=== PATIENT | female | born 1970 ===

== ENCOUNTER 2021-01-10 12:30 | Inpatient (IN) | payer MEDICAID ==
[2021-01-11 05:54] LABS: Basophils % (Auto) 0.5 % (0.0-1.8); Eosinophils # (Auto) 0.1 K/mm3 (0.0-0.4); Eosinophils % (Auto) 1.7 % (0.0-4.3); Hematocrit 31.5 % (30.3-42.9); Hemoglobin 10.3 gm/dl (10.1-14.3); Lymphocytes # (Auto) 1.4 K/mm3 (1.2-5.4); Mean Corpuscular HGB Conc 33 % (30-34); Mean Corpuscular Volume 76 fl (79-97); Monocytes # (Auto) 0.6 K/mm3 (0.0-0.8); Monocytes % (Auto) 8.8 % (0.0-7.3); Platelet Count 195 K/mm3 (140-440); Red Blood Count 4.13 M/mm3 (3.65-5.03); Red Cell Distribution Width 17.1 % (13.2-15.2)
[2021-01-11 06:16] LABS: Albumin 3.1 g/dL (3.9-5); Calcium 8.8 mg/dL (8.4-10.2); Chol/HDL Ratio 2.4 %
[2021-01-11 07:40] LABS: Hepatitis C Virus Antibody Non-Reactive (NonReactive)
[2021-01-11 08:12] LABS: Hepatitis B Surface Antigen Nonreactive (Negative)
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
[2021-01-11] MEDS ORDERED: DOCUSATE SODIUM 100 MG CAP PO PRN (10:00)
[2021-01-11] MEDS ORDERED: NON-FORMULARY EACH (Levetiracetam [Keppra Tab] 750 MG Tablet) PO SCH (10:00)
[2021-01-11] MEDS ORDERED: NON-FORMULARY EACH (Paroxetine Hcl [Paxil] 30 MG Tablet) PO SCH (10:00)
[2021-01-11] MEDS ORDERED: INSULIN REGULAR, HUMAN 100 UNITS/1 ML SUB-Q SCH (11:30)
[2021-01-11] MEDS: ASPIRIN EC 81 MG TAB PO SCH (12:27)
[2021-01-11] MEDS: hydrOXYzine PAMOATE 25 MG CAP PO SCH ×2 (12:28→21:41)
[2021-01-11] MEDS: PARoxetine 10 MG TAB PO SCH (12:29)
[2021-01-11] MEDS: BENZTROPINE 1 MG TAB PO SCH ×2 (12:29→21:40)
[2021-01-11] MEDS: levETIRAcetam 500 MG TAB PO SCH ×2 (12:30→21:40)
[2021-01-11] MEDS: PARoxetine 20 MG TAB PO SCH (12:34)
[2021-01-11] MEDS: INSULIN GLARGINE 100 UNITS/ML SUB-Q SCH ×2 (21:04→21:42)
[2021-01-11] MEDS: PRAVASTATIN 80 MG TAB PO SCH (21:41)
[2021-01-12] MEDS: INSULIN REGULAR, HUMAN 100 UNITS/1 ML SUB-Q SCH ×4 (08:48→21:30)
[2021-01-12] MEDS: hydrOXYzine PAMOATE 25 MG CAP PO SCH ×2 (10:38→21:25)
[2021-01-12] MEDS: ASPIRIN EC 81 MG TAB PO SCH (10:38)
[2021-01-12] MEDS: PARoxetine 20 MG TAB PO SCH (10:38)
[2021-01-12] MEDS: PARoxetine 10 MG TAB PO SCH (10:38)
[2021-01-12] MEDS: BENZTROPINE 1 MG TAB PO SCH ×2 (10:38→21:26)
[2021-01-12] MEDS: levETIRAcetam 500 MG TAB PO SCH ×2 (10:38→21:26)
--- NOTE | 2021-01-12 11:16 | History and Physical Report ---
History of Present Illness Date of examination: 01/12/21 Date of admission: 01/10/21 16:45 Chief complaint: Medical consult History of present illness: 50-year-old female patient with history of diabetes mellitus, seizure disorder, dyslipidemia and hypertension as well as bipolar and schizoaffective disorder was admitted to [facility] for further evaluation and management Since patient has multiple medical problems, medical consult was requested from the hospitalist service. Have seen and examined the patient in [facility] unit patient was calm and composed composed, denies any chest pain or shortness of breath Denies headache dizziness weakness or numbness, denies nausea vomiting or abdominal pain patient says she feels better here Denies suicidal thoughts or ideation No other complaints Past History Past Medical History: diabetes, hypertension, hyperlipidemia, seizures, other (Bipolar, schizoaffective disorder) Past Surgical History: No surgical history Social history: denies: smoking, alcohol abuse, prescription drug abuse Family history: denies: no significant family history Medications and Allergies Allergies Allergy/AdvReac Type Severity Reaction Status Date / Time dextromethorphan Allergy Unknown Unverified 01/10/21 15:08 guaifenesin [From Robitussin] Allergy Unknown Unverified 01/10/21 15:08 lisinopril Allergy Unknown Unverified 01/10/21 15:08 Penicillins Allergy Unknown Unverified 01/10/21 15:08 Home Medications Medication Instructions Recorded Confirmed Last Taken Type Aspirin EC [Halfprin EC] 81 mg PO QDAY 01/10/21 01/10/21 Unknown History Benztropine [Cogentin] 1 mg PO BID 01/10/21 01/10/21 Unknown History Docusate Sodium [Colace] 100 mg PO DAILY PRN 01/10/21 01/10/21 Unknown History PARoxetine HCl [Paxil] 30 mg PO DAILY 01/10/21 01/10/21 Unknown History Pravastatin [Pravachol] 80 mg PO QHS 01/10/21 01/10/21 Unknown History hydrOXYzine PAMOATE [Vistaril] 25 mg PO BID 01/10/21 01/10/21 Unknown History levETIRAcetam [Keppra TAB] 750 mg PO BID 01/10/21 01/10/21 Unknown History Insulin Glargine [Lantus VIAL] 25 unit SUB-Q BID 01/11/21 01/11/21 Unknown History Insulin Regular, Human [HumuLIN R] See Protocol SUB-Q ACHS 01/11/21 01/11/21 Unknown History Active Meds: Active Medications Aspirin (Aspirin Ec 81 Mg Tab) 81 mg PO QDAY [facility] Last Admin: 01/12/21 10:38 Dose: 81 mg Documented by: Benztropine Mesylate (Benztropine 1 Mg Tab) 1 mg PO BID [facility] Last Admin: 01/12/21 10:38 Dose: 1 mg Documented by: Docusate Sodium (Docusate Sodium 100 Mg Cap) 100 mg PO DAILY PRN PRN Reason: constipation Last Admin: 01/11/21 12:28 Dose: 100 mg Documented by: Hydroxyzine Pamoate (Hydroxyzine Pamoate 25 Mg Cap) 25 mg PO BID [facility] Last Admin: 01/12/21 10:38 Dose: 25 mg Documented by: Insulin Glargine (Insulin Glargine 100 Units/Ml) 25 units SUB-Q BID [facility] Last Admin: 01/11/21 21:42 Dose: Not Given Documented by: Insulin Human Regular (Insulin Regular, Human 100 Units/1 Ml) 0 units SUB-Q [facility]; Protocol Last Admin: 01/12/21 08:48 Dose: Not Given Documented by: Levetiracetam (Levetiracetam 500 Mg Tab) 750 mg PO BID [facility] Last Admin: 01/12/21 10:38 Dose: 750 mg Documented by: Paroxetine HCl (Paroxetine 20 Mg Tab) 20 mg PO DAILY [facility] Last Admin: 01/12/21 10:38 Dose: 20 mg Documented by: Paroxetine HCl (Paroxetine 10 Mg Tab) 10 mg PO DAILY [facility] Last Admin: 01/12/21 10:38 Dose: 10 mg Documented by: Pravastatin Sodium (Pravastatin 80 Mg Tab) 80 mg PO QHS [facility] Last Admin: 01/11/21 21:41 Dose: 80 mg Documented by: Review of Systems Constitutional: weakness, no weight loss, no weight gain Ears, nose, mouth and throat: no nasal congestion, no nasal discharge Cardiovascular: no chest pain, no palpitations Respiratory: no cough, no shortness of breath Gastrointestinal: no abdominal pain, no nausea, no vomiting Genitourinary Female: no flank pain, no dysuria Musculoskeletal: no myalgias, no arthritis Integumentary: no rash, no lesions Neurological: seizures (History of), no syncope Psychiatric: other (Bipolar, psychosis) Endocrine: no cold intolerance, no heat intolerance Hematologic/Lymphatic: no easy bruising, no easy bleeding Allergic/Immunologic: no urticaria, no allergic rhinitis Exam - Constitutional Vitals: Temp Pulse Resp BP Pulse Ox 98.7 F 61 18 190/68 98 01/12/21 09:18 01/12/21 09:18 01/12/21 09:18 01/12/21 09:18 01/12/21 09:18 General appearance: Present: no acute distress, well-nourished - EENT Eyes: Present: PERRL, EOM intact - Neck Neck: Present: supple, normal ROM - Respiratory Respiratory effort: normal Respiratory: bilateral: diminished, negative: rales, rhonchi, wheezing - Cardiovascular Rhythm: regular Heart Sounds: Present: S1 & S2 - Extremities Extremities: no ischemia, No edema - Abdominal General gastrointestinal: Present: soft, non-tender, non-distended, normal bowel sounds - Integumentary Integumentary: Present: clear, warm - Musculoskeletal Musculoskeletal: strength equal bilaterally, generalized weakness - Psychiatric Psychiatric: appropriate mood/affect, cooperative, no agitated - Neurologic Neurologic: moves all extremities Results - Labs CBC & Chem 7: 01/11/21 05:30 01/11/21 05:30 Labs: Abnormal lab results 01/11/21 01/11/21 01/12/21 Range/Units 14:26 21:11 06:14 POC Glucose 118 H 159 H 160 H (70-105) mg/dL Assessment and Plan --Hypertension; uncontrolled Add hydralazine 25 mg 3 times a day, and as needed hydralazine every 4 hours for blood pressure more than 155/90 -Type 2 diabetes mellitus-; Accu-Chek, sliding scale coverage, ADA diet, long-acting insulin as needed --Dyslipidemia; continue lipid-lowering medications Low-cholesterol diet --History of seizures; Seizure precautions, continue Keppra Patient cannot drive until cleared by neurologist --DVT prophylaxis; SCDs while resting Increase ambulation as tolerated and as permitted from the psych unit --Full CODE STATUS Closely monitor the patient and adjust management as needed Thank you for this consult we will follow the patient along with
[2021-01-12] MEDS: INSULIN GLARGINE 100 UNITS/ML SUB-Q SCH ×2 (11:59→21:30)
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
[2021-01-12] MEDS: QUEtiapine 25 MG TAB PO SCH ×2 (14:06→21:26)
[2021-01-12] MEDS: PRAVASTATIN 80 MG TAB PO SCH (21:25)
[2021-01-13] MEDS: INSULIN REGULAR, HUMAN 100 UNITS/1 ML SUB-Q SCH ×4 (08:19→21:46)
[2021-01-13] MEDS ORDERED: hydrALAZINE 10 MG TAB PO PRN (09:00)
--- NOTE | 2021-01-13 09:04 | Progress Note ---
Subjective Date of service: 01/13/21 Subjective Comment: 01/12/2021: The patient continue to be confused stating " it only takes one time to get ." She reports not doing well. She denies having suicidal/homicidal ideation and denies hallucinations. 01/13/2021: The patient continues to be confused and pacing. Per nurse: "pt is very disorganized, bizarre behaviour, irritable, pacing ,wet her self while sleeping, she went to shower with her cloth on. pt is medication compliant, good appetite, slept for 5hrs, presently asleep. no distress noted." REVIEW OF SYSTEMS Constitutional: Negative for weight loss ENT: Negative for stridor Respiratory: Negative for cough or hemoptysis All other systems reviewed and are negative MENTAL STATUS EXAMINATION General Appearance and Behavior: Age appropriate, good hygiene, wearing appropriate clothes, fair eye contact Cooperation: cooperative Psychomotor Behavior: Psychomotor normal Mood: Confused Affect and affective range: Incongruent to stated mood Thought Process: illogical Thought Content:confused Speech: normal tone and pace Suicidal Ideation:Denies Homicidal Ideation: Denies Hallucinations: Intermittent Auditory/ Visual Hallucinations Impulse Control: Questionable Insight and Judgment: Limited insight and judgment Memory: Normal Attention: Normal Orientation: Alert and oriented Assessment and Plan (1) Schizoaffective Current Visit: Yes Status: Acute Start Haldol 5mg po BID Treatment Plan Patient admitted for inpatient psychiatric evaluation, medication adjustment and close monitoring The patient's behavior, mood, sleep and appetite will be closely monitored. Patient enrolled in individual and group therapeutic sessions and encouraged to attend. Patient provided with a safe and structured environment. Patient's physical health needs will be addressed by the Hospitalist. Hospitalist Consulted Labs including CBC, CMP, Lipid profile and Hemoglobin A1C levels ordered for baseline reference Social Assessment will be completed and the [facility] Counselor will work with patient and family to ensure a suitable and safe disposition Medication adjustment will be made as clinically indicated Continued Home medications Start Seroquel 25mg po BID Usual Wellness [facility]/Preservation: - Start Trazodone 50 mg po QHS & 50 mg po QHS PRN between 10 PM & 2 AM for insomnia - Start Melatonin 5 mg po QHS to promote circadian rhythm The patient agreed on the treatment plan, understood the risk, benefit, alternative treatment, potential consequence of no treatment, and gave informed consent. Estimated days:2 Post hospital care: primary care provider, psychiatric provider Case staffed with Dr. Dawson Medications and Allergies Medications and Allergies Allergies Allergy/AdvReac Type Severity Reaction Status Date / Time dextromethorphan Allergy Unknown Unverified 01/10/21 15:08 guaifenesin [From Robitussin] Allergy Unknown Unverified 01/10/21 15:08 lisinopril Allergy Unknown Unverified 01/10/21 15:08 Penicillins Allergy Unknown Unverified 01/10/21 15:08 Home Medications Medication Instructions Recorded Confirmed Last Taken Type Aspirin EC [Halfprin EC] 81 mg PO QDAY 01/10/21 01/10/21 Unknown History Benztropine [Cogentin] 1 mg PO BID 01/10/21 01/10/21 Unknown History Docusate Sodium [Colace] 100 mg PO DAILY PRN 01/10/21 01/10/21 Unknown History PARoxetine HCl [Paxil] 30 mg PO DAILY 01/10/21 01/10/21 Unknown History Pravastatin [Pravachol] 80 mg PO QHS 01/10/21 01/10/21 Unknown History hydrOXYzine PAMOATE [Vistaril] 25 mg PO BID 01/10/21 01/10/21 Unknown History levETIRAcetam [Keppra TAB] 750 mg PO BID 01/10/21 01/10/21 Unknown History Insulin Glargine [Lantus VIAL] 25 unit SUB-Q BID 01/11/21 01/11/21 Unknown History Insulin Regular, Human [HumuLIN R] See Protocol SUB-Q ACHS 01/11/21 01/11/21 Unknown History Active Meds: Active Medications Aspirin (Aspirin Ec 81 Mg Tab) 81 mg PO QDAY [facility] Last Admin: 01/12/21 10:38 Dose: 81 mg Documented by: Benztropine Mesylate (Benztropine 1 Mg Tab) 1 mg PO BID [facility] Last Admin: 01/12/21 21:26 Dose: 1 mg Documented by: Docusate Sodium (Docusate Sodium 100 Mg Cap) 100 mg PO DAILY PRN PRN Reason: constipation Last Admin: 01/11/21 12:28 Dose: 100 mg Documented by: Hydralazine HCl (Hydralazine 25 Mg Tab) 25 mg PO Q8HR [facility] Hydralazine HCl (Hydralazine 10 Mg Tab) 10 mg PO Q4H PRN PRN Reason: Hypertension Hydroxyzine Pamoate (Hydroxyzine Pamoate 25 Mg Cap) 25 mg PO BID [facility] Last Admin: 01/12/21 21:25 Dose: 25 mg Documented by: Insulin Glargine (Insulin Glargine 100 Units/Ml) 25 units SUB-Q BID [facility] Last Admin: 01/12/21 21:30 Dose: Not Given Documented by: Insulin Human Regular (Insulin Regular, Human 100 Units/1 Ml) 0 units SUB-Q ACHS [facility]; Protocol Last Admin: 01/13/21 08:19 Dose: Not Given Documented by: Levetiracetam (Levetiracetam 500 Mg Tab) 750 mg PO BID [facility] Last Admin: 01/12/21 21:26 Dose: 750 mg Documented by: Paroxetine HCl (Paroxetine 20 Mg Tab) 20 mg PO DAILY [facility] Last Admin: 01/12/21 10:38 Dose: 20 mg Documented by: Paroxetine HCl (Paroxetine 10 Mg Tab) 10 mg PO DAILY [facility] Last Admin: 01/12/21 10:38 Dose: 10 mg Documented by: Pravastatin Sodium (Pravastatin 80 Mg Tab) 80 mg PO QHS [facility] Last Admin: 01/12/21 21:25 Dose: 80 mg Documented by: Quetiapine Fumarate (Quetiapine 25 Mg Tab) 25 mg PO BID [facility] Last Admin: 01/12/21 21:26 Dose: 25 mg Documented by: Results - Results Labs/Vitals: Laboratory Last Values WBC 6.5 K/mm3 (4.5-11.0) 01/11/21 05:30 RBC 4.13 M/mm3 (3.65-5.03) 01/11/21 05:30 Hgb 10.3 gm/dl (10.1-14.3) 01/11/21 05:30 Hct 31.5 % (30.3-42.9) 01/11/21 05:30 MCV 76 fl (79-97) L 01/11/21 05:30 MCH 25 pg (28-32) L 01/11/21 05:30 MCHC 33 % (30-34) 01/11/21 05:30 RDW 17.1 % (13.2-15.2) H 01/11/21 05:30 Plt Count 195 K/mm3 (140-440) 01/11/21 05:30 Lymph % (Auto) 21.0 % (13.4-35.0) 01/11/21 05:30 [place] % (Auto) 8.8 % (0.0-7.3) H 01/11/21 05:30 Eos % (Auto) 1.7 % (0.0-4.3) 01/11/21 05:30 Baso % (Auto) 0.5 % (0.0-1.8) 01/11/21 05:30 Lymph # (Auto) 1.4 K/mm3 (1.2-5.4) 01/11/21 05:30 [place] # (Auto) 0.6 K/mm3 (0.0-0.8) 01/11/21 05:30 Eos # (Auto) 0.1 K/mm3 (0.0-0.4) 01/11/21 05:30 Baso # (Auto) 0.0 K/mm3 (0.0-0.1) 01/11/21 05:30 Seg Neutrophils % 68.0 % (40.0-70.0) 01/11/21 05:30 Seg Neutrophils # 4.4 K/mm3 (1.8-7.7) 01/11/21 05:30 Sodium 139 mmol/L (137-145) 01/11/21 05:30 Potassium 3.6 mmol/L (3.6-5.0) 01/11/21 05:30 Chloride 103.4 mmol/L (98-107) 01/11/21 05:30 Carbon Dioxide 26 mmol/L (22-30) 01/11/21 05:30 Anion Gap 13 mmol/L 01/11/21 05:30 BUN 30 mg/dL (7-17) H 01/11/21 05:30 Creatinine 1.3 mg/dL (0.6-1.2) H 01/11/21 05:30 Estimated GFR 43 ml/min 01/11/21 05:30 BUN/Creatinine Ratio 23 % 01/11/21 05:30 Glucose 141 mg/dL (65-100) H 01/11/21 05:30 POC Glucose 124 mg/dL (70-105) H 01/13/21 06:27 Hemoglobin A1c 8.1 % (4-6) H 01/11/21 05:30 Calcium 8.8 mg/dL (8.4-10.2) 01/11/21 05:30 Total Bilirubin 0.20 mg/dL (0.1-1.2) 01/11/21 05:30 AST 8 units/L (5-40) 01/11/21 05:30 ALT 10 units/L (7-56) 01/11/21 05:30 Alkaline Phosphatase 87 units/L (35-129) 01/11/21 05:30 Total Protein 7.0 g/dL (6.3-8.2) 01/11/21 05:30 Albumin 3.1 g/dL (3.9-5) L 01/11/21 05:30 Albumin/Globulin Ratio 0.8 % 01/11/21 05:30 Triglycerides 75 mg/dL (2-149) 01/11/21 05:30 Cholesterol 173 mg/dL (50-199) 01/11/21 05:30 LDL Cholesterol Direct 94 mg/dL (50-130) 01/11/21 05:30 HDL Cholesterol 72 mg/dL (40-59) H 01/11/21 05:30 Cholesterol/HDL Ratio 2.40 % 01/11/21 05:30 TSH 0.693 mlU/mL (0.270-4.200) 01/11/21 05:30 Hepatitis A IgM Ab Non-reactive (NonReactive) 01/11/21 05:30 Hep Bs Antigen Nonreactive (Negative) 01/11/21 05:30 Hep B Core IgM Ab Non-reactive (NonReactive) 01/11/21 05:30 Hepatitis C Antibody Non-reactive (NonReactive) 01/11/21 05:30 Last Vital Signs Temp 98.5 F 01/12/21 19:56 Pulse 75 01/12/21 23:05 Resp 16 01/12/21 19:56 BP 188/61 01/12/21 23:05 Pulse Ox 98 01/12/21 19:56
[2021-01-13] MEDS: BENZTROPINE 1 MG TAB PO SCH ×2 (09:49→21:44)
[2021-01-13] MEDS: ASPIRIN EC 81 MG TAB PO SCH (09:49)
[2021-01-13] MEDS: hydrOXYzine PAMOATE 25 MG CAP PO SCH ×2 (09:49→21:44)
[2021-01-13] MEDS: HALOPERIDOL 5 MG TAB PO SCH ×2 (09:49→21:45)
[2021-01-13] MEDS: PARoxetine 10 MG TAB PO SCH (09:49)
[2021-01-13] MEDS: levETIRAcetam 500 MG TAB PO SCH ×2 (09:49→21:44)
[2021-01-13] MEDS: PARoxetine 20 MG TAB PO SCH (09:49)
[2021-01-13] MEDS: INSULIN GLARGINE 100 UNITS/ML SUB-Q SCH ×2 (09:50→21:46)
[2021-01-13] MEDS: hydrALAZINE 25 MG TAB PO SCH ×2 (14:32→21:45)
[2021-01-13] MEDS: PRAVASTATIN 80 MG TAB PO SCH (21:44)
[2021-01-14] MEDS: hydrALAZINE 25 MG TAB PO SCH ×3 (06:02→21:38)
[2021-01-14] MEDS: INSULIN REGULAR, HUMAN 100 UNITS/1 ML SUB-Q SCH ×4 (07:55→22:33)
--- NOTE | 2021-01-14 09:03 | Progress Note ---
Subjective Date of service: 01/14/21 Principal diagnosis: schizoaffective disorder Subjective Comment: The patient was seen today. She is a/o x 3. She says she feels wonderful. At times the patient is mumbling and appears to be talking to herself. I ask the patient and she says "I'm talking to you." She denies hallucinations. She denies SI/HI. She says her daughter is seven months and she's ready to go home and help her. REVIEW OF SYSTEMS Constitutional: Negative for weight loss ENT: Negative for stridor Respiratory: Negative for cough or hemoptysis All other systems reviewed and are negative MENTAL STATUS EXAMINATION General Appearance and Behavior: Age appropriate, good hygiene, wearing appropriate clothes, fair eye contact Cooperation: cooperative Psychomotor Behavior: Psychomotor normal Mood: Confused Affect and affective range: Incongruent to stated mood Thought Process: illogical Thought Content:confused Speech: normal tone and pace Suicidal Ideation:Denies Homicidal Ideation: Denies Hallucinations: Intermittent Auditory/ Visual Hallucinations Impulse Control: Questionable Insight and Judgment: Limited insight and judgment Memory: Normal Attention: Normal Orientation: Alert and oriented Assessment and Plan (1) Schizoaffective Current Visit: Yes Status: Acute Treatment Plan Patient admitted for inpatient psychiatric evaluation, medication adjustment and close monitoring The patient's behavior, mood, sleep and appetite will be closely monitored. Patient enrolled in individual and group therapeutic sessions and encouraged to attend. Patient provided with a safe and structured environment. Patient's physical health needs will be addressed by the Hospitalist. Hospitalist Consulted Labs including CBC, CMP, Lipid profile and Hemoglobin A1C levels ordered for baseline reference Social Assessment will be completed and the Box Machine Operator will work with patient and family to ensure a suitable and safe disposition Medication adjustment will be made as clinically indicated Continued Home medications Usual Wellness [facility]/Preservation: - Start Trazodone 50 mg po QHS & 50 mg po QHS PRN between 10 PM & 2 AM for insomnia - Start Melatonin 5 mg po QHS to promote circadian rhythm The patient agreed on the treatment plan, understood the risk, benefit, a lternative treatment, potential consequence of no treatment, and gave informed consent. Estimated days: 1 Post hospital care: primary care provider, psychiatric provider Case staffed with Dr. Dawson Medications and Allergies Allergies Allergy/AdvReac Type Severity Reaction Status Date / Time dextromethorphan Allergy Unknown Unverified 01/10/21 15:08 guaifenesin [From Robitussin] Allergy Unknown Unverified 01/10/21 15:08 lisinopril Allergy Unknown Unverified 01/10/21 15:08 Penicillins Allergy Unknown Unverified 01/10/21 15:08 Home Medications Medication Instructions Recorded Confirmed Last Taken Type Aspirin EC [Halfprin EC] 81 mg PO QDAY 01/10/21 01/10/21 Unknown History Benztropine [Cogentin] 1 mg PO BID 01/10/21 01/10/21 Unknown History Docusate Sodium [Colace] 100 mg PO DAILY PRN 01/10/21 01/10/21 Unknown History PARoxetine HCl [Paxil] 30 mg PO DAILY 01/10/21 01/10/21 Unknown History Pravastatin [Pravachol] 80 mg PO QHS 01/10/21 01/10/21 Unknown History hydrOXYzine PAMOATE [Vistaril] 25 mg PO BID 01/10/21 01/10/21 Unknown History levETIRAcetam [Keppra TAB] 750 mg PO BID 01/10/21 01/10/21 Unknown History Insulin Glargine [Lantus VIAL] 25 unit SUB-Q BID 01/11/21 01/11/21 Unknown History Insulin Regular, Human [HumuLIN R] See Protocol SUB-Q ACHS 01/11/21 01/11/21 Unknown History Active Meds: Active Medications Aspirin (Aspirin Ec 81 Mg Tab) 81 mg PO QDAY [facility] Last Admin: 01/13/21 09:49 Dose: 81 mg Documented by: Benztropine Mesylate (Benztropine 1 Mg Tab) 1 mg PO BID [facility] Last Admin: 01/13/21 21:44 Dose: 1 mg Documented by: Docusate Sodium (Docusate Sodium 100 Mg Cap) 100 mg PO DAILY PRN PRN Reason: constipation Last Admin: 01/11/21 12:28 Dose: 100 mg Documented by: Haloperidol (Haloperidol 5 Mg Tab) 5 mg PO BID [facility] Last Admin: 01/13/21 21:45 Dose: 5 mg Documented by: Hydralazine HCl (Hydralazine 25 Mg Tab) 25 mg PO Q8HR [facility] Last Admin: 01/14/21 06:02 Dose: 25 mg Documented by: Hydralazine HCl (Hydralazine 10 Mg Tab) 10 mg PO Q4H PRN PRN Reason: Hypertension Last Admin: 01/13/21 12:11 Dose: 10 mg Documented by: Hydroxyzine Pamoate (Hydroxyzine Pamoate 25 Mg Cap) 25 mg PO BID [facility] Last Admin: 01/13/21 21:44 Dose: 25 mg Documented by: Insulin Glargine (Insulin Glargine 100 Units/Ml) 25 units SUB-Q BID [facility] Last Admin: 01/13/21 21:46 Dose: Not Given Documented by: Insulin Human Regular (Insulin Regular, Human 100 Units/1 Ml) 0 units SUB-Q ACHS [facility]; Protocol Last Admin: 01/14/21 07:55 Dose: Not Given Documented by: Levetiracetam (Levetiracetam 500 Mg Tab) 750 mg PO BID [facility] Last Admin: 01/13/21 21:44 Dose: 750 mg Documented by: Paroxetine HCl (Paroxetine 20 Mg Tab) 20 mg PO DAILY [facility] Last Admin: 01/13/21 09:49 Dose: 20 mg Documented by: Paroxetine HCl (Paroxetine 10 Mg Tab) 10 mg PO DAILY [facility] Last Admin: 01/13/21 09:49 Dose: 10 mg Documented by: Pravastatin Sodium (Pravastatin 80 Mg Tab) 80 mg PO QHS [facility] Last Admin: 01/13/21 21:44 Dose: 80 mg Documented by: Results - Results Labs/Vitals: Laboratory Last Values WBC 6.5 K/mm3 (4.5-11.0) 01/11/21 05:30 RBC 4.13 M/mm3 (3.65-5.03) 01/11/21 05:30 Hgb 10.3 gm/dl (10.1-14.3) 01/11/21 05:30 Hct 31.5 % (30.3-42.9) 01/11/21 05:30 MCV 76 fl (79-97) L 01/11/21 05:30 MCH 25 pg (28-32) L 01/11/21 05:30 MCHC 33 % (30-34) 01/11/21 05:30 RDW 17.1 % (13.2-15.2) H 01/11/21 05:30 Plt Count 195 K/mm3 (140-440) 01/11/21 05:30 Lymph % (Auto) 21.0 % (13.4-35.0) 01/11/21 05:30 [place] % (Auto) 8.8 % (0.0-7.3) H 01/11/21 05:30 Eos % (Auto) 1.7 % (0.0-4.3) 01/11/21 05:30 Baso % (Auto) 0.5 % (0.0-1.8) 01/11/21 05:30 Lymph # (Auto) 1.4 K/mm3 (1.2-5.4) 01/11/21 05:30 [place] # (Auto) 0.6 K/mm3 (0.0-0.8) 01/11/21 05:30 Eos # (Auto) 0.1 K/mm3 (0.0-0.4) 01/11/21 05:30 Baso # (Auto) 0.0 K/mm3 (0.0-0.1) 01/11/21 05:30 Seg Neutrophils % 68.0 % (40.0-70.0) 01/11/21 05:30 Seg Neutrophils # 4.4 K/mm3 (1.8-7.7) 01/11/21 05:30 Sodium 139 mmol/L (137-145) 01/11/21 05:30 Potassium 3.6 mmol/L (3.6-5.0) 01/11/21 05:30 Chloride 103.4 mmol/L (98-107) 01/11/21 05:30 Carbon Dioxide 26 mmol/L (22-30) 01/11/21 05:30 Anion Gap 13 mmol/L 01/11/21 05:30 BUN 30 mg/dL (7-17) H 01/11/21 05:30 Creatinine 1.3 mg/dL (0.6-1.2) H 01/11/21 05:30 Estimated GFR 43 ml/min 01/11/21 05:30 BUN/Creatinine Ratio 23 % 01/11/21 05:30 Glucose 141 mg/dL (65-100) H 01/11/21 05:30 POC Glucose 133 mg/dL (70-105) H 01/14/21 06:35 Hemoglobin A1c 8.1 % (4-6) H 01/11/21 05:30 Calcium 8.8 mg/dL (8.4-10.2) 01/11/21 05:30 Total Bilirubin 0.20 mg/dL (0.1-1.2) 01/11/21 05:30 AST 8 units/L (5-40) 01/11/21 05:30 ALT 10 units/L (7-56) 01/11/21 05:30 Alkaline Phosphatase 87 units/L (35-129) 01/11/21 05:30 Total Protein 7.0 g/dL (6.3-8.2) 01/11/21 05:30 Albumin 3.1 g/dL (3.9-5) L 01/11/21 05:30 Albumin/Globulin Ratio 0.8 % 01/11/21 05:30 Triglycerides 75 mg/dL (2-149) 01/11/21 05:30 Cholesterol 173 mg/dL (50-199) 01/11/21 05:30 LDL Cholesterol Direct 94 mg/dL (50-130) 01/11/21 05:30 HDL Cholesterol 72 mg/dL (40-59) H 01/11/21 05:30 Cholesterol/HDL Ratio 2.40 % 01/11/21 05:30 TSH 0.693 mlU/mL (0.270-4.200) 01/11/21 05:30 Hepatitis A IgM Ab Non-reactive (NonReactive) 01/11/21 05:30 Hep Bs Antigen Nonreactive (Negative) 01/11/21 05:30 Hep B Core IgM Ab Non-reactive (NonReactive) 01/11/21 05:30 Hepatitis C Antibody Non-reactive (NonReactive) 01/11/21 05:30 Last Vital Signs Temp 98.5 F 01/14/21 08:02 Pulse 66 01/14/21 08:02 Resp 18 01/14/21 08:02 BP 174/64 01/14/21 08:02 Pulse Ox 98 01/14/21 08:02
[2021-01-14] MEDS: levETIRAcetam 500 MG TAB PO SCH ×2 (10:17→21:37)
[2021-01-14] MEDS: ASPIRIN EC 81 MG TAB PO SCH (10:17)
[2021-01-14] MEDS: HALOPERIDOL 5 MG TAB PO SCH ×2 (10:17→21:38)
[2021-01-14] MEDS: PARoxetine 20 MG TAB PO SCH (10:17)
[2021-01-14] MEDS: BENZTROPINE 1 MG TAB PO SCH ×2 (10:18→21:37)
[2021-01-14] MEDS: INSULIN GLARGINE 100 UNITS/ML SUB-Q SCH ×2 (10:18→21:42)
[2021-01-14] MEDS: PARoxetine 10 MG TAB PO SCH (10:18)
[2021-01-14] MEDS: hydrOXYzine PAMOATE 25 MG CAP PO SCH ×2 (10:20→21:37)
[2021-01-14] MEDS: PRAVASTATIN 80 MG TAB PO SCH (21:37)
[2021-01-15] MEDS: INSULIN REGULAR, HUMAN 100 UNITS/1 ML SUB-Q SCH (08:00)
[2021-01-15] MEDS: ASPIRIN EC 81 MG TAB PO SCH (09:24)
[2021-01-15] MEDS: HALOPERIDOL 5 MG TAB PO SCH (09:25)
[2021-01-15] MEDS: PARoxetine 20 MG TAB PO SCH (09:25)
[2021-01-15] MEDS: levETIRAcetam 500 MG TAB PO SCH (09:25)
[2021-01-15] MEDS: BENZTROPINE 1 MG TAB PO SCH (09:25)
[2021-01-15] MEDS: hydrOXYzine PAMOATE 25 MG CAP PO SCH (09:25)
[2021-01-15] MEDS: hydrALAZINE 25 MG TAB PO SCH (09:26)
[2021-01-15] MEDS: PARoxetine 10 MG TAB PO SCH (09:28)
--- NOTE | 2021-01-15 10:03 | Discharge Summary ---
Providers - Providers Date of Admission: 01/10/21 16:45 Date of discharge: 01/15/21 Attending physician: HALIE CHAVEZ MD 01/10/21 14:47 Consult to Physician [CONS] Routine Comment: Consulting Provider: MEMO GAITAN Physician Instructions: Reason For Exam: manage existing medical conditions Primary care physician: [facility] ADVISOR Hospitalization Reason for admission: psychosis Admitting Diagnosis: F25.9 - SCHIZOAFFECTIVE DISORDER, UNSPECIFIED Condition: Stable Hospital course: The patient was provided inpatient psychiatric treatment with safe and supportive care, medication adjustment, adverse effect monitoring, medical evaluations, medical treatments, assessment and psycho-education. The patient's mood, cognition, behavior, moral support are improved and stabilized. St the time of discharge, the patient had no endangering behavior and no debilitating adverse effects. The patient agreed on potential consequences of no treatment and gave informed consent. Disposition: 01 HOME / SELF CARE / HOMELESS Time spent for discharge: 35 Allergies/Adverse Reactions: Allergies dextromethorphan Allergy (Unverified 01/10/21 15:08) Unknown guaifenesin [From Robitussin] Allergy (Unverified 01/10/21 15:08) Unknown lisinopril Allergy (Unverified 01/10/21 15:08) Unknown Penicillins Allergy (Unverified 01/10/21 15:08) Unknown Vital Signs: Last Vital Signs Temp 99.3 F 01/14/21 19:41 Pulse 72 01/15/21 09:26 Resp 18 01/14/21 19:41 BP 128/76 01/15/21 09:26 Pulse Ox 100 01/14/21 19:41 Last Lab: Laboratory Last Values WBC 6.5 K/mm3 (4.5-11.0) 01/11/21 05:30 RBC 4.13 M/mm3 (3.65-5.03) 01/11/21 05:30 Hgb 10.3 gm/dl (10.1-14.3) 01/11/21 05:30 Hct 31.5 % (30.3-42.9) 01/11/21 05:30 MCV 76 fl (79-97) L 01/11/21 05:30 MCH 25 pg (28-32) L 01/11/21 05:30 MCHC 33 % (30-34) 01/11/21 05:30 RDW 17.1 % (13.2-15.2) H 01/11/21 05:30 Plt Count 195 K/mm3 (140-440) 01/11/21 05:30 Lymph % (Auto) 21.0 % (13.4-35.0) 01/11/21 05:30 [place] % (Auto) 8.8 % (0.0-7.3) H 01/11/21 05:30 Eos % (Auto) 1.7 % (0.0-4.3) 01/11/21 05:30 Baso % (Auto) 0.5 % (0.0-1.8) 01/11/21 05:30 Lymph # (Auto) 1.4 K/mm3 (1.2-5.4) 01/11/21 05:30 [place] # (Auto) 0.6 K/mm3 (0.0-0.8) 01/11/21 05:30 Eos # (Auto) 0.1 K/mm3 (0.0-0.4) 01/11/21 05:30 Baso # (Auto) 0.0 K/mm3 (0.0-0.1) 01/11/21 05:30 Seg Neutrophils % 68.0 % (40.0-70.0) 01/11/21 05:30 Seg Neutrophils # 4.4 K/mm3 (1.8-7.7) 01/11/21 05:30 Sodium 139 mmol/L (137-145) 01/11/21 05:30 Potassium 3.6 mmol/L (3.6-5.0) 01/11/21 05:30 Chloride 103.4 mmol/L (98-107) 01/11/21 05:30 Carbon Dioxide 26 mmol/L (22-30) 01/11/21 05:30 Anion Gap 13 mmol/L 01/11/21 05:30 BUN 30 mg/dL (7-17) H 01/11/21 05:30 Creatinine 1.3 mg/dL (0.6-1.2) H 01/11/21 05:30 Estimated GFR 43 ml/min 01/11/21 05:30 BUN/Creatinine Ratio 23 % 01/11/21 05:30 Glucose 141 mg/dL (65-100) H 01/11/21 05:30 POC Glucose 158 mg/dL (70-105) H 01/14/21 19:38 Hemoglobin A1c 8.1 % (4-6) H 01/11/21 05:30 Calcium 8.8 mg/dL (8.4-10.2) 01/11/21 05:30 Total Bilirubin 0.20 mg/dL (0.1-1.2) 01/11/21 05:30 AST 8 units/L (5-40) 01/11/21 05:30 ALT 10 units/L (7-56) 01/11/21 05:30 Alkaline Phosphatase 87 units/L (35-129) 01/11/21 05:30 Total Protein 7.0 g/dL (6.3-8.2) 01/11/21 05:30 Albumin 3.1 g/dL (3.9-5) L 01/11/21 05:30 Albumin/Globulin Ratio 0.8 % 01/11/21 05:30 Triglycerides 75 mg/dL (2-149) 01/11/21 05:30 Cholesterol 173 mg/dL (50-199) 01/11/21 05:30 LDL Cholesterol Direct 94 mg/dL (50-130) 01/11/21 05:30 HDL Cholesterol 72 mg/dL (40-59) H 01/11/21 05:30 Cholesterol/HDL Ratio 2.40 % 01/11/21 05:30 TSH 0.693 mlU/mL (0.270-4.200) 01/11/21 05:30 Hepatitis A IgM Ab Non-reactive (NonReactive) 01/11/21 05:30 Hep Bs Antigen Nonreactive (Negative) 01/11/21 05:30 Hep B Core IgM Ab Non-reactive (NonReactive) 01/11/21 05:30 Hepatitis C Antibody Non-reactive (NonReactive) 01/11/21 05:30 Core Measure Documentation - Palliative Care Palliative Care/ Comfort Measures: Not Applicable - Core Measures Any of the following diagnoses?: none Exam - Constitutional Vitals: Temp Pulse Resp BP Pulse Ox 99.3 F 72 18 128/76 100 01/14/21 19:41 01/15/21 09:26 01/14/21 19:41 01/15/21 09:26 01/14/21 19:41 General appearance: Present: no acute distress - EENT Eyes: Present: PERRL, EOM intact ENT: hearing intact, clear oral mucosa - Neck Neck: Present: normal ROM - Respiratory Respiratory effort: normal Plan Activity: advance as tolerated Weight Bearing Status: Weight Bear as Tolerated Care Plan Goals: Maintain good and stable mental health Plan of Treatment: The patient should be compliant with medications, not to use drugs, and not to drink alcohol. The patient understands that if suicidal ideas, homicidal ideas or any endangering feeling arise, the patient should seek assistance including, but not limited to crisis hotline, and emergency room. Assessment: Schizoaffective Disorder Follow up with: PRIMARY CARE, [Primary Care Provider] - 7 Days Prescriptions: haloperidoL [Haldol] 5 mg PO BID #60 tablet PARoxetine HCl [Paxil] 30 mg PO DAILY #30 hydrOXYzine PAMOATE [Vistaril] 25 mg PO BID #60 cap
[2021-01-15 13:34] VITALS: BP 187/69
== END 2021-01-15 12:15 | disposition home or self-care (01) | DRG 885 ==
LOC: UNDOADMIN 12:30 → 3A 12:30 → 5A 16:45
PROVIDERS: ADMIT Psychiatry & Neurology Psychiatry; ATTEND Psychiatry & Neurology Psychiatry
DX: F25.0 Schizoaffective disorder, bipolar type (principal); I50.9 Heart failure, unspecified; I11.0 Hypertensive heart disease with heart failure; E11.9 Type 2 diabetes mellitus without complications; E78.5 Hyperlipidemia, unspecified; Z20.822 Contact with and (suspected) exposure to COVID-19
CPT/HCPCS: 36415; 80053; 80061; 80074; 82962; 83036; 84443; 85025; G0378; Q0177